=== PATIENT | male | born 1960 | race Caucasian/White ===

== ENCOUNTER 2022-06-21 21:20 | Outpatient (CLI) | payer MEDICAID ==
--- NOTE | 2022-06-22 17:10 | XRAY Report ---
PROCEDURE: Lumbar Spine 2 View INDICATIONS: LOW BACK PAIN, ACUTE TECHNIQUE: 4 views of the lumbar spine were acquired. COMPARISON: None. FINDINGS: Bones: 5 [id number] vertebrae are present. There is mild levoscoliosis centered at L1-2 level. Straightening of normal lumbar lordosis is seen. Loss of disc height, degenerative endplate changes and bilateral facet arthrosis throughout lumbar spine is seen most notably at L4-5 and L5-S1 levels.. No vertebral body compression fractures. No suspicious bony lesions. Soft tissues: Overlying bowel gas pattern is normal. No suspicious soft tissue calcifications. IMPRESSION: No acute compression fracture or significant spondylolisthesis. Mild levoscoliosis cente red at L1-2 level. Degenerative disc disease throughout lumbar spine most notably at L4-5 and L5-S1 l evels. Reviewed by: Maurice Nuñez MD on 06/22/2022 5:08 PM PST Approved by: Maurice Nuñez MD on 06/22/2022 5:08 PM PST Station ID: [id number]
== END 2022-06-21 21:21 | disposition home or self-care (01) ==
LOC: DI 21:20
PROVIDERS: ATTEND Family Medicine
DX: M47.816 Spondylosis without myelopathy or radiculopathy, lumbar region (principal); M47.817 Spondylosis without myelopathy or radiculopathy, lumbosacral region; M51.36 Other intervertebral disc degeneration, lumbar region; M51.37 Other intervertebral disc degeneration, lumbosacral region

== ENCOUNTER 2023-06-19 17:37 | Emergency (ER) | payer SELFPAY ==
[2023-06-19 21:07] LABS: B. PARAPERTUSSIS- RESP PCR PAN NOT DETECTED; B. PERTUSSIS- RESP PCR PANEL NOT DETECTED; C. PNEUMONIAE- RESP PCR PANEL NOT DETECTED; CORONAVIRUS 229E-RESP PCR NOT DETECTED; CORONAVIRUS HKU1-RESP PCR NOT DETECTED; CORONAVIRUS NL63-RESP PCR NOT DETECTED; CORONAVIRUS OC43-RESP PCR NOT DETECTED; HUMAN METAPNEUMOVIRUS NOT DETECTED; INFLUENZA A- RESP PCR PANEL NOT DETECTED; INFLUENZA B - RESP PCR PANEL NOT DETECTED; M. PNEUMONIAE- RESP PCR PANEL NOT DETECTED; PARAINFLUENZA VIRUS 1 NOT DETECTED; PARAINFLUENZA VIRUS 2 NOT DETECTED; PARAINFLUENZA VIRUS 3 NOT DETECTED; PARAINFLUENZA VIRUS 4 NOT DETECTED; RHINOVIRUS/ENTEROVIRUS NOT DETECTED; RSV- RESP PCR PANEL NOT DETECTED; SARS-CoV-2 -RESP PCR PANEL NOT DETECTED
[2023-06-19 21:57] LABS: VBG PCO2 35.4 mmHg (41-51); VBG PH 7.43 (7.31-7.41); VBG PO2 27.4 mmHg (25-47)
[2023-06-19 21:58] LABS: BASOPHILS # (AUTO) 0.1 10^3/uL (0.0-0.1); BASOPHILS % (AUTO) 0.6 %; EOSINOPHILS # (AUTO) 0.1 10^3/uL (0.0-0.7); EOSINOPHILS % (AUTO) 1.5 %; HCT - HEMATOCRIT 49.1 % (42.0-52.0); HGB - HEMOGLOBIN 15.4 g/dL (14.0-18.0); LYMPHOCYTES # (AUTO) 2.6 10^3/uL (1.5-3.5); LYMPHOCYTES % (AUTO) 26.4 %; MEAN CORPUSCULAR HEMOGLOBIN 28.4 pg (27.0-31.0); MEAN CORPUSCULAR HGB CONC 31.4 g/dL (32.0-36.0); MEAN CORPUSCULAR VOLUME 90.4 fL (80.0-94.0); MEAN PLATELET VOLUME 11.1 fL (7.4-11.4); MONOCYTES # (AUTO) 0.9 10^3/uL (0.0-1.0); MONOCYTES % (AUTO) 9.7 %; NEUTROPHILS # (AUTO) 5.9 10^3/uL (1.5-6.6); NEUTROPHILS % (AUTO) 61.5 %; PLT - PLATELET COUNT 396 10^3/uL (130-450); RED BLOOD COUNT 5.43 10^6/uL (4.70-6.10); RED CELL DISTRIBUTION WIDTH 14.6 % (12.0-15.0); VBG BASE EXCESS -0.7 mmol/L (-2 - +2); VBG OXYGEN SATURATION 49.6 % (60-80); VBG TOTAL CO2 24.1 mmol/L (24-29); WHITE BLOOD COUNT 9.7 x10^3/uL (4.8-10.8)
--- NOTE | 2023-06-19 22:00 | XRAY Report ---
PROCEDURE: Chest 1 View X-Ray INDICATIONS: sob TECHNIQUE: One view of the chest was acquired. COMPARISON: None. FINDINGS: Surgical changes and devices: None. Lungs and pleura: Hazy right perihilar and left basilar airspace opacities. Mediastinum: Mediastinal contours appear normal. Heart size is normal. Bones and chest wall: No suspicious bony lesions. Overlying soft tissues appear unremarkable. IMPRESSION: Hazy right perihilar and left basilar airspace opacities. Differential includes multifocal infection, aspiration or atelectasis. Reviewed by: Pepe Fernández on 06/19/2023 9:59 PM [facility] [place] Approved by: Pepe Fernández on 06/19/2023 9:59 PM [facility] [place] Station ID: [id number]
[2023-06-19 22:22] LABS: ALBUMIN/GLOBULIN RATIO 1.5 (1.0-2.2); BILIRUBIN,TOTAL 0.5 mg/dL (0.2-1.0); CALCIUM 9.3 mg/dL (8.5-10.3); CREATININE 1.1 mg/dL (0.6-1.3); POTASSIUM 4.2 mmol/L (3.5-4.5); TOTAL PROTEIN 6.6 g/dL (6.4-8.9)
--- NOTE | 2023-06-19 23:43 | ED Physician Documentation ---
PD HPI DYSPNEA - Stated complaint Stated Complaint: SOA - Chief complaint Chief Complaint: Resp - History obtained from History obtained from: Patient - Additional information Additional information: 63yM with pmh htn, gout, p/w Nonproductive cough and shortness of breath for the past 2 weeks. Patient was diagnosed with acute viral syndrome but has had persistent cough and worsening shortness of breath. Denies hemoptysis, fever, nausea or vomiting, leg swelling. Denies chest pain PD PAST MEDICAL HISTORY - Past Medical History Past Medical History: Yes Cardiovascular: Hypertension - Past Surgical History Past Surgical History: Yes General: Colonoscopy HEENT: Tonsil/Adenoidectomy - Present Medications Home Medications: Ambulatory Orders Medication Instructions Recorded Confirmed Cholecalciferol (Vitamin D3) 2,000 unit PO DAILY 10/28/13 10/28/13 [Vitamin D-3] Vitamin A 8,000 unit PO 10/28/13 10/28/13 allopurinoL [Allopurinol] 100 mg PO 10/28/13 10/28/13 atenoloL [Tenormin] 50 mg PO DAILY 10/28/13 10/28/13 dexAMETHasone [Decadron] 4 mg PO BIDWM #15 tablet 10/28/13 lisinopriL [Zestril] 40 mg PO DAILY 10/28/13 10/28/13 oxyCODONE [Roxicodone] 5 mg PO Q6H 10/28/13 10/28/13 oxyCODONE/ACET 5/325 [Percocet 5 1 each PO Q4-6H #30 tablet 10/28/13 mg/325 mg] Amox/Clav 875/125 [Augmentin 1 tablet PO Q12H 7 Days #14 tablet 06/19/23 875/125 Tab] Azithromycin [Zithromax Tri-Titus] 500 mg PO QDAC 5 Days #6 tablet 06/19/23 - Allergies Allergies/Adverse Reactions: Allergies Allergy/AdvReac Type Severity Reaction Status Date / Time No Known Drug Allergies Allergy Verified 06/19/23 17:41 - Social History Does the pt smoke?: Yes Smoking Status: Current every day smoker Does the pt drink ETOH?: Yes Does the pt have substance abuse?: Yes - Immunizations Immunizations are current?: Yes - POLST Patient has POLST: No PD ED PE NORMAL - Vitals Vital signs reviewed: Yes - General General: Alert and oriented X 3, No acute distress, Well developed/nourished - HEENT HEENT: Atraumatic, PERRL, EOMI - Neck Neck: Supple, no meningeal sign - Cardiac Cardiac: RRR - Respiratory Respiratory: No respiratory distress, Other (Diminished breath sounds right Mid lung cobb. Otherwise good air entry) - Abdomen Abdomen: Non tender, Non distended Results - Vitals Vitals: Vital Signs - 24 hr 06/19/23 17:41 Temperature 37.0 C Heart Rate 73 Respiratory 20 Rate Blood Pressure 130/90 H O2 Saturation 97 Oxygen O2 Source Room air - Labs Labs: Laboratory Tests 06/19/23 06/19/23 06/19/23 20:05 21:51 21:51 WBC 9.7 RBC 5.43 Hgb 15.4 Hct 49.1 MCV 90.4 MCH 28.4 MCHC 31.4 L RDW 14.6 Plt Count 396 MPV 11.1 Neut # (Auto) 5.9 Lymph # (Auto) 2.6 [place] # (Auto) 0.9 Eos # (Auto) 0.1 Baso # (Auto) 0.1 Absolute Nucleated RBC 0.00 Nucleated RBC % 0.0 VBG pH VBG pCO2 VBG pO2 VBG HCO3 VBG Total CO2 VBG O2 Saturation VBG Base Excess Sodium 138 Potassium 4.2 Chloride 105 Carbon Dioxide 23 Anion Gap 10.0 BUN 20 Creatinine 1.1 Estimated GFR (MDRD) 68 L Glucose 95 Lactic Acid Calcium 9.3 Total Bilirubin 0.5 AST 32 ALT 75 H Alkaline Phosphatase 127 H Total Protein 6.6 Albumin 4.0 Globulin 2.6 Albumin/Globulin Ratio 1.5 Lipase 13 Nasal Adenovirus (PCR) NOT DETECTED Nasal B. parapertussis DNA (PCR) NOT DETECTED Nasal Coronavir 229E PCR NOT DETECTED Nasal Coronavir HKU1 PCR NOT DETECTED Nasal Coronavir NL63 PCR NOT DETECTED Nasal Coronavir OC43 PCR NOT DETECTED Nasal Enterovir/Rhinovir PCR NOT DETECTED Nasal Influenza B PCR NOT DETECTED Nasal Influenza A PCR NOT DETECTED Nasal Parainfluen 1 PCR NOT DETECTED Nasal Parainfluen 2 PCR NOT DETECTED Nasal Parainfluen 3 PCR NOT DETECTED Nasal Parainfluen 4 PCR NOT DETECTED Nasal RSV (PCR) NOT DETECTED Nasal B.pertussis DNA PCR NOT DETECTED Nasal C.pneumoniae (PCR) NOT DETECTED Prakash Human Metapneumo PCR NOT DETECTED Nasal M.pneumoniae (PCR) NOT DETECTED Nasal SARS-CoV-2 (PCR) NOT DETECTED 06/19/23 06/19/23 21:51 21:51 WBC RBC Hgb Hct MCV MCH MCHC RDW Plt Count MPV Neut # (Auto) Lymph # (Auto) [place] # (Auto) Eos # (Auto) Baso # (Auto) Absolute Nucleated RBC Nucleated RBC % VBG pH 7.430 H VBG pCO2 35.4 L VBG pO2 27.4 VBG HCO3 23.0 VBG Total CO2 24.1 VBG O2 Saturation 49.6 L VBG Base Excess -0.7 Sodium Potassium Chloride Carbon Dioxide Anion Gap BUN Creatinine Estimated GFR (MDRD) Glucose Lactic Acid 1.7 Calcium Total Bilirubin AST ALT Alkaline Phosphatase Total Protein Albumin Globulin Albumin/Globulin Ratio Lipase Nasal Adenovirus (PCR) Nasal B. parapertussis DNA (PCR) Nasal Coronavir 229E PCR Nasal Coronavir HKU1 PCR Nasal Coronavir NL63 PCR Nasal Coronavir OC43 PCR Nasal Enterovir/Rhinovir PCR Nasal Influenza B PCR Nasal Influenza A PCR Nasal Parainfluen 1 PCR Nasal Parainfluen 2 PCR Nasal Parainfluen 3 PCR Nasal Parainfluen 4 PCR Nasal RSV (PCR) Nasal B.pertussis DNA PCR Nasal C.pneumoniae (PCR) Prakash Human Metapneumo PCR Nasal M.pneumoniae (PCR) Nasal SARS-CoV-2 (PCR) PD Medical Decision Making - ED course ED course: 63-year-old man presents with right-sided pneumonia, Confirmed by clinical exam and chest x-ray per my interpretation and that of outside radiologist. No leukocytosis on CBC. Abdominal panel benign. Lactic acid normal.Blood cultures ordered. first dose of antibiotics provided in the emergency department and prescription sent to pharmacy. Return precautions given. Plan to follow-up with primary care provider. Departure - Departure Disposition: 01 Home, Self Care Clinical Impression: Pneumonia Condition: Stable Instructions: Pneumonia Dc Prescriptions: Amox/Clav 875/125 [Augmentin 875/125 Tab] 1 tablet PO Q12H 7 Days #14 tablet Azithromycin [Zithromax Tri-Titus] 500 mg PO QDAC 5 Days #6 tablet Comments: You were seen in the emergency department for R sided pneumonia. Electronic pr escription for antibiotics was sent to [facility]. Please follow-up with a primary care provider and return to the emergency department if you have any new or worsening symptoms or other concerns.
[2023-06-19] MEDS: AZITHROMYCIN 250 MG TABLET PO STA (23:44)
[2023-06-19] MEDS: AMOX/CLAV 875 MG/125 MG TABLET PO STA (23:44)
[2023-06-20 00:14] VITALS: BP 179/127; O2SAT 98
== END 2023-06-20 00:01 | disposition home or self-care (01) ==
LOC: ED 17:37
DX: J18.9 Pneumonia, unspecified organism (principal); I10 Essential (primary) hypertension
CPT/HCPCS: 36415; 71045; 80053; 82803; 83605; 83690; 85025; 87040; 87633; 99284; A9270

== ENCOUNTER 2023-06-23 00:19 | Outpatient (CLI) | payer SELFPAY | END 2023-06-23 23:59 | disposition critical access hospital (66) | LOC: EMS 00:19 | DX: R06.02 Shortness of breath (principal) | CPT/HCPCS: A0425; A0429 ==

== ENCOUNTER 2023-06-23 00:45 | Emergency (ER) | payer SELFPAY ==
[2023-06-23] MEDS ORDERED: IPRATROPIUM/ALBUTEROL 3 ML NEB INH STA (00:57)
--- NOTE | 2023-06-23 00:57 | ED Physician Documentation ---
PD HPI DYSPNEA - Stated complaint Stated Complaint: SOA - Chief complaint Chief Complaint: Resp - History obtained from History obtained from: Patient, EMS - Additional information Additional information: 63-year-old male with history of hypertension, gout presents by EMS from home for shortness of breath. Patient was seen 4 days prior at our emergency department for similar presentation, he was diagnosed with pneumonia and discharged on Augmentin and azithromycin. Patient states that he has been taking his medications as prescribed. This evening he went to lay down and felt even more short of breath than he has been for the last several days and called 911. EMS reports that the patient was hyperventilating in route, however was able to be coached into breathing at a more normal rate. Patient's oxygen saturations were stable on room air throughout transport. Noted to be tachycardic with PVCs and hypertensive. Review of Systems Constitutional: denies: Fever, Chills Cardiac: denies: Chest pain / pressure, Palpitations, Calf pain Respiratory: reports: Dyspnea, Cough. denies: Wheezing GI: denies: Abdominal Pain, Nausea, Vomiting : denies: Dysuria, Frequency PD PAST MEDICAL HISTORY - Past Medical History Cardiovascular: Hypertension - Past Surgical History Past Surgical History: Yes General: Colonoscopy HEENT: Tonsil/Adenoidectomy - Present Medications Home Medications: Ambulatory Orders Medication Instructions Recorded Confirmed Cholecalciferol (Vitamin D3) 2,000 unit PO DAILY 10/28/13 06/23/23 [Vitamin D-3] Vitamin A 8,000 unit PO DAILY 10/28/13 06/23/23 allopurinoL [Allopurinol] 100 mg PO DAILY 10/28/13 06/23/23 atenoloL [Tenormin] 50 mg PO DAILY 10/28/13 06/23/23 dexAMETHasone [Decadron] 4 mg PO BIDWM #15 tablet 10/28/13 06/23/23 lisinopriL [Zestril] 40 mg PO DAILY 10/28/13 06/23/23 oxyCODONE [Roxicodone] 5 mg PO Q6H 10/28/13 06/23/23 Amox/Clav 875/125 [Augmentin 1 tablet PO Q12H 7 Days #14 tablet 06/19/23 06/23/23 875/125 Tab] Azithromycin [Zithromax Tri-Titus] 500 mg PO QDAC 5 Days #6 tablet 06/19/23 06/23/23 Furosemide [Lasix] 20 mg PO DAILY #30 tablet 06/23/23 Metoprolol Succinate [Toprol Xl] 50 mg PO DAILY #30 tablet 06/23/23 - Allergies Allergies/Adverse Reactions: Allergies Allergy/AdvReac Type Severity Reaction Status Date / Time No Known Drug Allergies Allergy Verified 06/23/23 00:58 - Social History Does the pt smoke?: Yes Smoking Status: Current every day smoker Does the pt drink ETOH?: Yes Does the pt have substance abuse?: Yes - Immunizations Immunizations are current?: Yes - POLST Patient has POLST: No PD ED PE NORMAL - Vitals Vital signs reviewed: Yes - General General: Alert and oriented X 3, Well developed/nourished, Other (anxious) - Cardiac Cardiac: No murmur, Strong equal pulses, Other (tachycardia) - Respiratory Respiratory: Clear bilaterally, Other (tachypnea) - Abdomen Abdomen: Soft, Non tender, Non distended - Derm Derm: Normal color, Warm and dry, No rash - Extremities Extremities: No deformity, No tenderness to palpate, Normal ROM s pain, No edema - Neuro Neuro: Alert and oriented X 3, manager of tax 2-12 intact, No motor deficit, Normal speech Results - Vitals Vitals: Vital Signs - 24 hr 06/23/23 06/23/23 06/23/23 00:45 01:05 01:13 Temperature 36.6 C Heart Rate 117 H 109 H 108 H Respiratory 25 H 24 11 L Rate Blood Pressure 148/115 H 175/109 H O2 Saturation 98 100 06/23/23 06/23/23 06/23/23 01:44 02:21 02:44 Temperature Heart Rate 108 H 115 H 97 Respiratory 23 22 17 Rate Blood Pressure 190/105 H 142/87 H 140/98 H O2 Saturation 95 96 97 06/23/23 06/23/23 06/23/23 03:47 04:20 04:36 Temperature 36.7 C Heart Rate 107 H 113 H 107 H Respiratory 24 24 26 H Rate Blood Pressure 140/98 H 160/115 H 157/118 H O2 Saturation 96 99 93 06/23/23 06/23/23 06/23/23 04:48 04:54 05:02 Temperature Heart Rate 82 79 85 Respiratory 25 H 23 Rate Blood Pressure 129/83 H 136/107 H O2 Saturation 94 95 98 06/23/23 06/23/23 06/23/23 05:07 05:15 05:47 Temperature 36.8 C 36.6 C Heart Rate 87 80 82 Respiratory 24 19 19 Rate Blood Pressure 115/83 H 128/104 H 106/94 H O2 Saturation 97 98 96 Oxygen O2 Source Room air - Labs Labs: Laboratory Tests 06/23/23 06/23/23 06/23/23 00:58 01:09 01:09 WBC 9.8 RBC 4.89 Hgb 14.2 Hct 44.9 MCV 91.8 MCH 29.0 MCHC 31.6 L RDW 15.0 Plt Count 293 MPV 11.9 H Neut # (Auto) 6.2 Lymph # (Auto) 2.3 [place] # (Auto) 1.1 H Eos # (Auto) 0.1 Baso # (Auto) 0.1 Absolute Nucleated RBC 0.00 Nucleated RBC % 0.0 PT 14.1 H INR 1.3 H Sodium Potassium Chloride Carbon Dioxide Anion Gap BUN Creatinine Estimated GFR (MDRD) Glucose Calcium Total Bilirubin AST ALT Alkaline Phosphatase Troponin I High Sens B-Natriuretic Peptide Total Protein Albumin Globulin Albumin/Globulin Ratio Nasal Adenovirus (PCR) NOT DETECTED Nasal B. parapertussis DNA (PCR) NOT DETECTED Nasal Coronavir 229E PCR NOT DETECTED Nasal Coronavir HKU1 PCR NOT DETECTED Nasal Coronavir NL63 PCR NOT DETECTED Nasal Coronavir OC43 PCR NOT DETECTED Nasal Enterovir/Rhinovir PCR NOT DETECTED Nasal Influenza B PCR NOT DETECTED Nasal Influenza A PCR NOT DETECTED Nasal Parainfluen 1 PCR NOT DETECTED Nasal Parainfluen 2 PCR NOT DETECTED Nasal Parainfluen 3 PCR NOT DETECTED Nasal Parainfluen 4 PCR NOT DETECTED Nasal RSV (PCR) NOT DETECTED Nasal B.pertussis DNA PCR NOT DETECTED Nasal C.pneumoniae (PCR) NOT DETECTED Prakash Human Metapneumo PCR NOT DETECTED Nasal M.pneumoniae (PCR) NOT DETECTED Nasal SARS-CoV-2 (PCR) NOT DETECTED 06/23/23 06/23/23 06/23/23 01:09 01:09 01:09 WBC RBC Hgb Hct MCV MCH MCHC RDW Plt Count MPV Neut # (Auto) Lymph # (Auto) [place] # (Auto) Eos # (Auto) Baso # (Auto) Absolute Nucleated RBC Nucleated RBC % PT INR Sodium 136 Potassium 4.4 Chloride 105 Carbon Dioxide 23 Anion Gap 8.0 BUN 25 H Creatinine 1.0 Estimated GFR (MDRD) 75 L Glucose 105 H Calcium 9.1 Total Bilirubin 0.4 AST 35 ALT 79 H Alkaline Phosphatase 141 H Troponin I High Sens 36.0 H* B-Natriuretic Peptide 1862 H Total Protein 6.0 L Albumin 3.7 Globulin 2.3 Albumin/Globulin Ratio 1.6 Nasal Adenovirus (PCR) Nasal B. parapertussis DNA (PCR) Nasal Coronavir 229E PCR Nasal Coronavir HKU1 PCR Nasal Coronavir NL63 PCR Nasal Coronavir OC43 PCR Nasal Enterovir/Rhinovir PCR Nasal Influenza B PCR Nasal Influenza A PCR Nasal Parainfluen 1 PCR Nasal Parainfluen 2 PCR Nasal Parainfluen 3 PCR Nasal Parainfluen 4 PCR Nasal RSV (PCR) Nasal B.pertussis DNA PCR Nasal C.pneumoniae (PCR) Prakash Human Metapneumo PCR Nasal M.pneumoniae (PCR) Nasal SARS-CoV-2 (PCR) PD Medical Decision Making - ED course Complexity details: reviewed old records, reviewed results, re-evaluated patient, considered differential, d/w patient ED course: Patient with worsening shortness of breath after being treated for pneumonia. 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 We will repeat labs and chest x-ray here, however due to patient's worsening symptoms with tachycardia and tachypnea we will also order CT angio. Patient remains tachycardic with frequent PVCs on cardiac cath lab radiology technologist, pulse ox stable on room air. Laboratory work is significant for elevated BNP, intermediate troponin, however patient is denying chest pain and EKG shows no acute signs of ischemia. Chest x-ray read demonstrates right-sided pneumonia process, still pending CT angio. Preliminary review of CT angio shows moderate pleural effusion on the right-hand side as well as minimal pleural effusion on the left-hand side, not evident on chest x-ray imaging.. Patient denies history of congestive heart failure, will order IV Lasix and IV beta-blockers for heart rate, blood pressure. Patient's oxygen saturations stable on room air both at rest and on ambulation. Diuresing well with IV lasix Radiology review of CT scan shows no pulmonary embolism, the pneumonia seen on chest x-ray is most likely compressive atelectasis. Patient continues to diurese well, already states that he feels much better and his breathing is improved. Patient was informed of all lab and imaging results. I discussed with the patient my concern that the patient has developing congestive heart failure. He will be continued on Lasix and a low-dose beta-leda will be given for both high blood pressure and tachycardia. He was counseled on following a low-salt diet as well as monitoring his fluid intake to prevent repeat volume overload. Patient states that he has a primary care doctor that he may call for a follow-up appointment. Strict ED return precautions discussed at bedside. Departure - Departure Disposition: Home, Self Care Clinical Impression: Volume overload Qualifiers: Hypervolemia type: unspecified Qualified Code(s): E87.70 - Fluid overload, unspecified Dyspnea Qualifiers: Dyspnea type: unspecified Qualified Code(s): R06.00 - Dyspnea, unspecified Condition: Stable Instructions: Heart Failure Diet Changes, Heart Failure Dc Follow-Up: Lizzie Albarran MD [Provider Admit Priv/Credential] - Prescriptions: Furosemide [Lasix] 20 mg PO DAILY #30 tablet Metoprolol Succinate [Toprol Xl] 50 mg PO DAILY #30 tablet Comments: It is extremely important that you follow-up with a primary care physician and a multiple cut off saw operator. If you are feeling short of breath despite taking your medications and watching her salt and fluid intake, please come back to the emergency department as soon as possible. Forms: PCP List
[2023-06-23 01:14] LABS: BASOPHILS # (AUTO) 0.1 10^3/uL (0.0-0.1); BASOPHILS % (AUTO) 0.7 %; EOSINOPHILS # (AUTO) 0.1 10^3/uL (0.0-0.7); EOSINOPHILS % (AUTO) 1.2 %; HCT - HEMATOCRIT 44.9 % (42.0-52.0); HGB - HEMOGLOBIN 14.2 g/dL (14.0-18.0); LYMPHOCYTES # (AUTO) 2.3 10^3/uL (1.5-3.5); LYMPHOCYTES % (AUTO) 23.4 %; MEAN CORPUSCULAR HGB CONC 31.6 g/dL (32.0-36.0); MEAN CORPUSCULAR VOLUME 91.8 fL (80.0-94.0); MEAN PLATELET VOLUME 11.9 fL (7.4-11.4); MONOCYTES # (AUTO) 1.1 10^3/uL (0.0-1.0); NEUTROPHILS # (AUTO) 6.2 10^3/uL (1.5-6.6); NEUTROPHILS % (AUTO) 63.4 %; PLT - PLATELET COUNT 293 10^3/uL (130-450); RED BLOOD COUNT 4.89 10^6/uL (4.70-6.10); WHITE BLOOD COUNT 9.8 x10^3/uL (4.8-10.8)
[2023-06-23 01:28] LABS: ALBUMIN 3.7 g/dL (3.2-5.5); ALBUMIN/GLOBULIN RATIO 1.6 (1.0-2.2); BILIRUBIN,TOTAL 0.4 mg/dL (0.2-1.0); CALCIUM 9.1 mg/dL (8.5-10.3); POTASSIUM 4.4 mmol/L (3.5-4.5)
[2023-06-23 01:36] LABS: INR 1.3 (0.8-1.2); PT - PROTHROMBIN TIME 14.1 secs (9.9-12.6)
--- NOTE | 2023-06-23 01:37 | XRAY Report ---
PROCEDURE: Chest 1 View X-Ray INDICATIONS: worsening dyspnea TECHNIQUE: One view of the chest was acquired. COMPARISON: Prior chest plain film 06/19/2023. FINDINGS: Surgical changes and devices: None. Lungs and pleura: No pleural effusions or pneumothorax. Lungs are abnormal with a definite pneumoni a pattern at the right lower lobe medially, and probable retrocardiac left lower lobe medial pneumoni a also. Additionally, inspiratory volume is reduced.. Mediastinum: Mediastinal contours appear normal. Heart size is globally mildly enlarged.. Bones and chest wall: No suspicious bony lesions. Overlying soft tissues appear unremarkable. IMPRESSION: Bibasilar pneumonia, chronic mild cardiomegaly. Possible slight superimposed pulmonary edema but this is in the setting of reduced inspiratory volume which can cause crowding of the bronchovascular abundio ings. Reviewed by: Nahid Torres MD on 06/23/2023 1:35 AM [facility] Approved by: Nahid Torres MD on 06/23/2023 1:35 AM [facility] Station ID: [id number]
[2023-06-23 03:14] LABS: B. PARAPERTUSSIS- RESP PCR PAN NOT DETECTED; B. PERTUSSIS- RESP PCR PANEL NOT DETECTED; C. PNEUMONIAE- RESP PCR PANEL NOT DETECTED; CORONAVIRUS 229E-RESP PCR NOT DETECTED; CORONAVIRUS HKU1-RESP PCR NOT DETECTED; CORONAVIRUS NL63-RESP PCR NOT DETECTED; CORONAVIRUS OC43-RESP PCR NOT DETECTED; HUMAN METAPNEUMOVIRUS NOT DETECTED; INFLUENZA A- RESP PCR PANEL NOT DETECTED; INFLUENZA B - RESP PCR PANEL NOT DETECTED; M. PNEUMONIAE- RESP PCR PANEL NOT DETECTED; PARAINFLUENZA VIRUS 1 NOT DETECTED; PARAINFLUENZA VIRUS 2 NOT DETECTED; PARAINFLUENZA VIRUS 3 NOT DETECTED; PARAINFLUENZA VIRUS 4 NOT DETECTED; RHINOVIRUS/ENTEROVIRUS NOT DETECTED; RSV- RESP PCR PANEL NOT DETECTED; SARS-CoV-2 -RESP PCR PANEL NOT DETECTED
[2023-06-23] MEDS ORDERED: FUROSEMIDE 40 MG/4 ML VIAL IVP STA (04:20)
[2023-06-23] MEDS ORDERED: LABETALOL 20 MG/4 ML SYRINGE IVP STA (04:23)
[2023-06-23] MEDS ORDERED: iohexoL-300 100 ML VIAL IVP ONE (04:37)
[2023-06-23 05:58] VITALS: O2SAT 96
[2023-06-23 06:52] VITALS: BP 111/79
--- NOTE | 2023-06-23 09:11 | CT Report ---
PROCEDURE: ANGIO CHEST W/WO INDICATIONS: dyspnea, tachycardia CONTRAST: 100 ML OMNI 300 TECHNIQUE: After the administration of intravenous contrast, 2 mm axial images were acquired from the pulmonary apices to the posterior costophrenic angles during the arterial phase. In addition, 1 mm lung kernel and 5 mm soft tissue kernel reconstructions were performed. 3-dimensional coronal oblique maximum int ensity projection (MIP) reformats, 8 mm axial MIP, and 5 mm coronal and sagittal MPR reformats were t hen performed through the thorax. For radiation dose reduction, the following was used: automated exp osure control, adjustment of mA and/or kV according to patient size. COMPARISON: Chest radiograph June 22, 2023 FINDINGS: Image quality: Excellent. Large vessels: No filling defects within the opacified pulmonary arteries, accounting for motion and contrast timing. Lungs and pleura: Compressive atelectasis of right greater than left lower lobes. Moderate right smal l left pleural effusion. No suspicious pulmonary nodules which require follow up. Mediastinum: Heart size is enlarged. No pericardial effusion. Ascending aortic ectasia measuring 4 cm . The pulmonary artery measures 3.5 cm. Mildly prominent hilar and mediastinal lymph nodes. Chest wall and lower neck: Thyroid is unremarkable. No axillary or supraclavicular adenopathy by size . Bones: No aggressive osseous abnormality. Upper Abdomen: Unremarkable. IMPRESSION: 1.No pulmonary embolus. 2.Moderate right and small left pleural effusions. 3.Consolidation with bilateral lower lobes likely compressive atelectasis however cannot exclude infe ction given the slightly prominent lymph nodes. 4.Cardiomegaly. 5.Ascending aortic ectasia. 6.Prominent pulmonary artery is suggestive of pulmonary hypertension. Findings are concordant with preliminary interpretation provided by [facility]. Reviewed by: Gino García MD on 06/23/2023 8:[address] [facility] Approved by: iGno García MD on 06/23/2023 8:[address] [facility] Station ID: [id number]
== END 2023-06-23 06:45 | disposition home or self-care (01) ==
LOC: EDUNIT# → ED 00:45
DX: E87.70 Fluid overload, unspecified (principal); R06.00 Dyspnea, unspecified; I10 Essential (primary) hypertension; F17.200 Nicotine dependence, unspecified, uncomplicated; Z11.52 Encounter for screening for COVID-19; Z79.899 Other long term (current) drug therapy
CPT/HCPCS: 36415; 71045; 71275; 80053; 83880; 84484; 85025; 85610; 87633; 93005; 94640; 96374; 96375; 99283; 99284; Q9967

== ENCOUNTER 2023-10-29 19:27 | Emergency (ER) | payer BC ==
[2023-10-29 19:38] VITALS: O2SAT 98
--- NOTE | 2023-10-29 21:27 | Ultrasound Report ---
PROCEDURE: Duplex Ext Veins Right INDICATIONS: RLE swelling and pain, R/o DVT TECHNIQUE: Real-time imaging, as well as color and pulse Doppler interrogation, were performed of the lower extr emity deep veins from the inguinal ligament to the popliteal fossa. Attempted visualization of the ca lf veins was performed. COMPARISON: None. FINDINGS: The deep veins are normally compressible, and free of intraluminal thrombus. Color and pu lse Doppler demonstrate normal phasic intraluminal flow. There is normal augmentation response to di stal compression maneuver. IMPRESSION: No deep venous thrombosis of the visualized lower extremity. Reviewed by: Pepe Fernández MD on 10/29/2023 9:26 PM PDT Approved by: Pepe Fernández MD on 10/29/2023 9:26 PM PDT Station ID: [id number]
--- NOTE | 2023-10-29 22:33 | ED Physician Documentation ---
History of Present Illness - Stated complaint Stated Complaint: RT LEG PX - Chief complaint Chief Complaint: Ext Problem - History obtained from History obtained from: Patient - Additonal information Additional information: HPI from patient. Patient complains of atraumatic right lower leg swelling, pain, and erythema x 4 days. Symptoms were of gradual onset and without inciting event. The pain is worse with weight-bearing, palpation. He denies history of similar symptoms. Denies chest pain, shortness of breath. Does not think he has had fevers at home, but he says his thermometer is broken. Review of Systems Constitutional: denies: Fever, Chills, Sweats Musculoskeletal: reports: Extremity swelling Neurologic: denies: Focal weakness, Numbness PD PAST MEDICAL HISTORY - Past Medical History Past Medical History: Yes Cardiovascular: Hypertension Respiratory: Pneumonia Neuro: None Endocrine/Autoimmune: None GI: None : None HEENT: None Psych: None Musculoskeletal: Gout Derm: None - Past Surgical History Past Surgical History: Yes General: Colonoscopy Cardiovascular: Coronary stent HEENT: Tonsil/Adenoidectomy - Present Medications Home Medications: Ambulatory Orders Medication Instructions Recorded Confirmed Cholecalciferol (Vitamin D3) 2,000 unit PO DAILY 10/28/13 06/23/23 [Vitamin D-3] Vitamin A 8,000 unit PO DAILY 10/28/13 06/23/23 allopurinoL [Allopurinol] 100 mg PO DAILY 10/28/13 06/23/23 atenoloL [Tenormin] 50 mg PO DAILY 10/28/13 06/23/23 lisinopriL [Zestril] 40 mg PO DAILY 10/28/13 06/23/23 oxyCODONE [Roxicodone] 5 mg PO Q6H 10/28/13 06/23/23 Furosemide [Lasix] 20 mg PO DAILY #30 tablet 06/23/23 Metoprolol Succinate [Toprol Xl] 50 mg PO DAILY #30 tablet 06/23/23 Clopidogrel [Plavix] 75 mg PO DAILY 10/29/23 Doxycycline [Vibramycin] 100 mg PO BID #14 tablet 10/29/23 Spironolactone [Aldactone] 25 mg PO DAILY 10/29/23 Torsemide 20 mg PO DAILY 10/29/23 - Allergies Allergies/Adverse Reactions: Allergies Allergy/AdvReac Type Severity Reaction Status Date / Time No Known Drug Allergies Allergy Verified 10/29/23 19:35 - Social History Does the pt smoke?: Yes Smoking Status: Current every day smoker Does the pt drink ETOH?: Yes Does the pt have substance abuse?: Yes - Immunizations Immunizations are current?: Yes - POLST Patient has POLST: No PD ED PE NORMAL - Vitals Vital signs reviewed: Yes - General General: Alert and oriented X 3, No acute distress, Well developed/nourished PD ED PE EXPANDED - Extremities DIETER LE visual: 1 - rash (anteromedial/anterolateral confluent erythema (sparing of posterior aspect), hot to touch), swelling (circumferential swelling) Results - Vitals Vitals: Vital Signs - 24 hr 10/29/23 10/29/23 10/29/23 19:28 19:35 23:00 Temperature 36.5 C 36.4 C L Heart Rate 58 L 76 Respiratory 18 17 16 Rate Blood Pressure 139/84 H 134/89 H O2 Saturation 98 Oxygen O2 Source Room air - Rads (name of study) RLE venous US Relevant Findings:: Prelim report reviewed, See rad report PD Medical Decision Making - ED course Complexity details: reviewed results, considered differential, d/w patient ED course: Patient presents with atraumatic right lower extremity swelling and pain. RLE venous Doppler is negative for DVT. 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 Will treat for cellulitis; given first dose of doxycycline in the ED, and prescription for a 1-week course of doxycycline electronically submitted to the patient's pharmacy of choice. Return precautions are discussed, diagnosis and prognosis reviewed. Departure - Departure Disposition: 01 Home, Self Care Clinical Impression: Cellulitis Qualifiers: Site of cellulitis: extremity Site of cellulitis of extremity: lower extremity Laterality: right Qualified Code(s): L03.115 - Cellulitis of right lower limb Condition: Good Instructions: ED Infec Skin Cellulitis Prescriptions: Doxycycline [Vibramycin] 100 mg PO BID #14 tablet Comments: There were no concerning findings on the ultrasound of your right leg tonight; specifically, no evidence of blood clot. Based on the ultrasound findings, and considering your signs and symptoms, it is very likely that your symptoms are due to a skin infection (cellulitis). For this, you were given the first dose of an antibiotic (doxycycline) in the emergency department, and I have electronically submitted a prescription for a 1-week course of this antibiotic to the [facility] pharmacy in [place]. Forms: PCP List Discharge Date/Time: 10/29/23 23:06
[2023-10-29] MEDS: DOXYCYCLINE 100 MG TABLET PO STA (22:58)
[2023-10-29 23:09] VITALS: BP 134/89
== END 2023-10-29 23:06 | disposition home or self-care (01) ==
LOC: ED 19:27
DX: L03.115 Cellulitis of right lower limb (principal); I10 Essential (primary) hypertension; Z79.899 Other long term (current) drug therapy; F17.200 Nicotine dependence, unspecified, uncomplicated
CPT/HCPCS: 93971; 99283; 99284; A9270